=== PATIENT | male | born 1960 | race Caucasian/White ===

== ENCOUNTER → 2021-08-21 11:06 | Outpatient (BNVA) | payer OTHER, SELFPAY | PROVIDERS: PCP Physician Assistant; Visit Provider Internal Medicine Gastroenterology | DX: Z12.11 Encounter for screening for malignant neoplasm of colon (principal); K51.90 Ulcerative colitis, unspecified, without complications | CPT/HCPCS: 99202 ==

== ENCOUNTER 2021-12-20 10:48 | Inpatient (IN) | payer OTHER, SELFPAY ==
--- NOTE | ~2021-12-20 | XR_ITS ---
EXAMINATION: XR CHEST CLINICAL INFORMATION: Cough COMPARISON: Chest x-ray 02/18/2018 TECHNIQUE: Frontal view of the chest was obtained. FINDINGS: The lungs are clear. No airspace consolidation, pleural effusion, or pneumothorax. The cardiomediastinal silhouette is within normal limits. No acute osseous injury. XR/XR chest 1V IMPRESSION: Unremarkable examination.
--- NOTE | ~2021-12-20 | CT_ITS ---
EXAMINATION: CT HEAD WITHOUT CONTRAST CT CERVICAL SPINE WITHOUT CONTRAST CLINICAL INFORMATION: Fall. COMPARISON: February 01, 2020. TECHNIQUE: CT of the head and cervical spine were performed without intravenous contrast. Multiplanar reformats were rendered and reviewed. This CT examination was performed using dose optimization techniques as appropriate, variously including the following: *Automated exposure control *Adjustment of mA and/or kV according to patient size (this includes techniques or standardized protocols for targeted exams where dose is matched to indication/reason for exam; i.e. extremities or head) *Use of iterative reconstruction technique DLP: 1031 mGy-cm. FINDINGS: CT head: No intracranial hemorrhage, large infarction, or mass lesion is seen. Question subtle hypodensity involving the cedrick bilaterally versus beam hardening artifact, grossly similar to worse compared with February 01, 2020. Mild bilateral chronic periventricular white matter ischemic changes. No extra-axial collection is appreciated. The ventricles are normal in size and configuration without evidence of hydrocephalus. The visualized paranasal sinuses and mastoid air cells are clear. CT cervical spine: The cervical alignment is normal. The craniocervical junction is normal. The vertebral body heights are maintained. No cervical spine fracture is seen. Multilevel exuberant anterior osteophyte formation, most notable at C4-T1. Moderate bilateral neuroforaminal narrowing appears present at C5-C7 The paraspinal soft tissues are within normal limits. The partially imaged lung apices are clear. CT/CT cervical spine wo con IMPRESSION: CT head: No acute intracranial finding. Question subtle hypodensity involving the cedrick bilaterally versus beam hardening artifact, grossly similar to worse compared with February 01, 2020. CT cervical spine: No cervical spine fracture or traumatic malalignment identified. Degenerative changes.
--- NOTE | ~2021-12-20 | CT_ITS ---
EXAMINATION: CT HEAD WITHOUT CONTRAST CT CERVICAL SPINE WITHOUT CONTRAST CLINICAL INFORMATION: Fall. COMPARISON: February 01, 2020. TECHNIQUE: CT of the head and cervical spine were performed without intravenous contrast. Multiplanar reformats were rendered and reviewed. This CT examination was performed using dose optimization techniques as appropriate, variously including the following: *Automated exposure control *Adjustment of mA and/or kV according to patient size (this includes techniques or standardized protocols for targeted exams where dose is matched to indication/reason for exam; i.e. extremities or head) *Use of iterative reconstruction technique DLP: 1031 mGy-cm. FINDINGS: CT head: No intracranial hemorrhage, large infarction, or mass lesion is seen. Question subtle hypodensity involving the cedrick bilaterally versus beam hardening artifact, grossly similar to worse compared with February 01, 2020. Mild bilateral chronic periventricular white matter ischemic changes. No extra-axial collection is appreciated. The ventricles are normal in size and configuration without evidence of hydrocephalus. The visualized paranasal sinuses and mastoid air cells are clear. CT cervical spine: The cervical alignment is normal. The craniocervical junction is normal. The vertebral body heights are maintained. No cervical spine fracture is seen. Multilevel exuberant anterior osteophyte formation, most notable at C4-T1. Moderate bilateral neuroforaminal narrowing appears present at C5-C7 The paraspinal soft tissues are within normal limits. The partially imaged lung apices are clear. CT/CT head/brain wo con IMPRESSION: CT head: No acute intracranial finding. Question subtle hypodensity involving the cedrick bilaterally versus beam hardening artifact, grossly similar to worse compared with February 01, 2020. CT cervical spine: No cervical spine fracture or traumatic malalignment identified. Degenerative changes.
[2021-12-20 10:52] VITALS: BP 150/81; BP 150/90; PULSE 80; PULSE 88; RESP 20; TEMP 36.8; O2SAT 98; BMI 17.9
--- NOTE | 2021-12-20 10:52 | ECG_ITS ---
Test Reason : AMS Blood Pressure : / mmHG Vent. Rate : 078 BPM Atrial Rate : 078 BPM P-R Int : 150 ms QRS Dur : 102 ms QT Int : 398 ms P-R-T Axes : 073 065 074 degrees QTc Int : 453 ms Normal sinus rhythm Normal ECG When compared with ECG of 18-FEB-2018 15:05, No significant change was found Referred By: Juli Andujar Electronically Signed By:MÓNICA DURHAM MD
[2021-12-20 11:02] LABS: Glucose, Whole Blood 103 mg/dL (60-115)
--- NOTE | 2021-12-20 11:07 | ED_ITS ---
HPI - Fall General Chief Complaint: Fall Stated Complaint: AMS,WEAK,-STROKE SCALE, FROM HOME PER EMS Time Seen by Provider: 12/20/21 10:51 Source: EMS Mode of arrival: EMS History of Present Illness HPI Narrative: 61-year-old male who is brought in by EMS who reports that the brother went to check on the patient and noted that the patient has been falling and drinks daily. Patient did fall twice in front of EMS follow-up patient denies any acute complaints other than some ?rib pain?, he denies any shortness of breath or abdominal pain. Patient is a poor historian. Related Data Home Medications Medication Instructions Recorded Confirmed bupropion HCl 150 mg 24 hr tablet, 150 mg PO QAM 08/21/21 extended release melatonin 3 mg capsule 3 mg PO BEDTIME PRN 08/21/21 olanzapine 10 mg tablet 10 mg PO BEDTIME 08/21/21 thiamine HCl (vitamin B1) 100 mg 50 mg PO DAILY 08/21/21 tablet Previous Rx's Medication Instructions Recorded peg-electrolyte solution 420 gram 240 ml PO Q10M #4,000 mL 08/21/21 oral solution (Nulytely Lemon-Hoh) Allergies Allergy/AdvReac Type Severity Reaction Status Date / Time shellfish derived Allergy Unknown HIVES Unverified 08/21/21 11:11 [SHELLFISH DERIVED] shrimp Allergy Unknown HIVES Unverified 08/21/21 11:11 shellfish Allergy Unknown anaphylaxis, Uncoded 08/21/21 11:11 hives Review of Systems Review of Systems: Pertinent positives and negatives as stated in HPI 10 point review of systems otherwise negative. [facility] Past Medical History Source: nursing notes reviewed Social History Social History Alcohol intake: current Alcohol intake frequency: 3 or more drinks per day Alcohol type: beer Smoked in Last 30 Days: No Use of substances other than those prescribed or required for medical reasons: No Advance Directives: No Advance Directives Information Provided: Yes Physical Exam Vital Signs: Vital Signs: Last Vital Signs Temp 98.3 F 12/20/21 10:52 Pulse 88 12/20/21 10:52 Resp 20 12/20/21 10:52 BP 150/81 H 12/20/21 10:52 Pulse Ox 98 12/20/21 10:52 O2 Del Method 12/20/21 10:52 BMI result Body Mass Index 17.9 VITAL SIGNS: Reviewed. GENERAL: Cachectic, chronically ill, smells of alcohol HEAD: Normocephalic/atraumatic EYES: PERRLA, EOMI EARS: Ext canals without abnormality OROPHARYNX: no oral lesions noted, posterior pharynx clear, dry mucosa NECK: Supple, no adenopathy LUNGS: Normal breath sounds. No adventitious sounds or accessory muscle use. SpO2<98>; CHEST WALL: There are no deformities, ecchymosis or crepitus noted CARDIOVASCULAR: Regular rate and rhythm without noted murmurs, no JVD or lower extremity edema. ABDOMEN: Soft, non-tender, non-distended with bowel sounds. MUSCULOSKELETAL: No tenderness, deformities, or effusions noted on gross inspection. EXTREMITIES: No cyanosis, clubbing or edema, scattered bruising on lower extrem ities. SKIN: Inspection of the skin reveals no rashes, ulcerations, jaundice, pallor, or petechiae. NEUROLOGIC: Sleepy but easily aroused and oriented x 3. Strength and sensation to light touch were grossly intact x 4, but patient clearly has ataxic gait. Course Course Course Narrative: 61-year-old male with history and clinical presentation consistent with alcohol intoxication, multiple falls with ataxic gait but CT scan does show Question subtle hypodensity involving the cedrick bilaterally versus beam hardening artifact, grossly similar to worse compared with February 01, 2020. Review of all investigations consistent with alcohol ketoacidosis and associated pancreatitis with dehydration and alcohol intoxication. I discussed the case with the inpatient hospitalist who will evaluate the patient and likely admit. Patient was started on the phenobarb protocol and thiamine as well as folate were ordered. Reevaluation(s) Reevaluation #1: I discussed CT findings with Dr. 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 Time: 14:06 MDM - Fall Lab Data Result diagrams: 12/20/21 11:08 12/20/21 11:08 Labs: Lab Results 12/20/21 12/20/21 12/20/21 Range/Units 10:58 11:08 11:08 WBC 3.1 L (4.8-10.8) X10*3/uL RBC 4.13 L (4.60-5.80) X10*6/uL Hgb 12.8 L (14.0-18.0) g/dl Hct 35.8 L (42.0-52.0) % MCV 86.7 (80.0-98.0) fL MCH 31.0 (27.0-33.0) pg MCHC 35.8 (31.0-36.0) g/dl RDW 13.1 (11.0-16.0) % Plt Count 109 L (160-400) X10*3/uL MPV 10.3 (9.4-12.4) fL Immature Gran % (Auto) 1.0 H (0.0-0.4) % Neut % (Auto) 57.7 (45-73) % Lymph % (Auto) 13.1 L (20-40) % [place] % (Auto) 27.9 H (2-11) % Eos % (Auto) 0.0 (0-4) % Baso % (Auto) 0.3 (0-2) % Lymph # (Auto) 0.4 L (1.2-4.9) X10*3/uL [place] # (Auto) 0.9 (0.1-1.2) X10*3/uL Eos # (Auto) 0.0 (0.0-0.4) X10*3/uL Baso # (Auto) 0.0 (0.0-0.2) X10*3/uL Abs Immat Gran (auto) 0.03 (0.00-0.03) X10*3/uL Absolute Neuts (auto) 1.8 L (2.0-8.3) x10*3/uL Absolute Nucleated RBC 0.000 (0.0-0.012) X10*3/uL Nucleated RBC % (auto) 0.0 (0.0-0.2) /100WBC Smear Tech's Comments VERIFIED PT 12.7 (10.0-13.1) SEC INR 1.1 (0.9-1.1) Sodium (135-145) mmol/L Potassium (3.3-5.1) mmol/L Chloride (96-108) mmol/L Carbon Dioxide (22-29) mmol/L Anion Gap (12-20) BUN (9-16) mg/dL Creatinine (0.5-1.4) mg/dL Estim Creat Clear Calc Estimated GFR POC Glucose 103 (60-115) mg/dL Random Glucose (60-115) mg/dL Lactic Acid (0.5-2.0) mmol/L Calcium (8.4-10.2) mg/dL Magnesium (1.6-2.6) mg/dL Total Bilirubin (0.0-1.0) mg/dL AST (5-37) U/L ALT (0-40) U/L Alkaline Phosphatase (39-117) U/L Troponin I High Sens (<3.5-35.0) ng/L Total Protein (6.5-8.0) g/dL Albumin (3.5-5.0) g/dL Lipase (8-78) U/L Ethyl Alcohol mg/dL COVID-19 ([facility]) (Negative) COVID-19 Clin Com 12/20/21 12/20/21 12/20/21 Range/Units 11:08 11:08 11:08 WBC (4.8-10.8) X10*3/uL RBC (4.60-5.80) X10*6/uL Hgb (14.0-18.0) g/dl Hct (42.0-52.0) % MCV (80.0-98.0) fL MCH (27.0-33.0) pg MCHC (31.0-36.0) g/dl RDW (11.0-16.0) % Plt Count (160-400) X10*3/uL MPV (9.4-12.4) fL Immature Gran % (Auto) (0.0-0.4) % Neut % (Auto) (45-73) % Lymph % (Auto) (20-40) % [place] % (Auto) (2-11) % Eos % (Auto) (0-4) % Baso % (Auto) (0-2) % Lymph # (Auto) (1.2-4.9) X10*3/uL [place] # (Auto) (0.1-1.2) X10*3/uL Eos # (Auto) (0.0-0.4) X10*3/uL Baso # (Auto) (0.0-0.2) X10*3/uL Abs Immat Gran (auto) (0.00-0.03) X10*3/uL Absolute Neuts (auto) (2.0-8.3) x10*3/uL Absolute Nucleated RBC (0.0-0.012) X10*3/uL Nucleated RBC % (auto) (0.0-0.2) /100WBC Smear Tech's Comments PT (10.0-13.1) SEC INR (0.9-1.1) Sodium 128 L (135-145) mmol/L Potassium 3.2 L (3.3-5.1) mmol/L Chloride 85 L (96-108) mmol/L Carbon Dioxide 19 L (22-29) mmol/L Anion Gap 27 H (12-20) BUN 7 L (9-16) mg/dL Creatinine 0.82 (0.5-1.4) mg/dL Estim Creat Clear Calc 71.5 Estimated GFR > 60 POC Glucose (60-115) mg/dL Random Glucose 90 (60-115) mg/dL Lactic Acid 1.7 (0.5-2.0) mmol/L Calcium 8.5 (8.4-10.2) mg/dL Magnesium 2.0 (1.6-2.6) mg/dL Total Bilirubin 1.1 H (0.0-1.0) mg/dL AST 192 H (5-37) U/L ALT 103 H (0-40) U/L Alkaline Phosphatase 82 (39-117) U/L Troponin I High Sens < 3.5 (<3.5-35.0) ng/L Total Protein 7.9 (6.5-8.0) g/dL Albumin 4.4 (3.5-5.0) g/dL Lipase 360 H (8-78) U/L Ethyl Alcohol 288 mg/dL COVID-19 ([facility]) (Negative) COVID-19 Clin Com 12/20/21 Range/Units 11:08 WBC (4.8-10.8) X10*3/uL RBC (4.60-5.80) X10*6/uL Hgb (14.0-18.0) g/dl Hct (42.0-52.0) % MCV (80.0-98.0) fL MCH (27.0-33.0) pg MCHC (31.0-36.0) g/dl RDW (11.0-16.0) % Plt Count (160-400) X10*3/uL MPV (9.4-12.4) fL Immature Gran % (Auto) (0.0-0.4) % Neut % (Auto) (45-73) % Lymph % (Auto) (20-40) % [place] % (Auto) (2-11) % Eos % (Auto) (0-4) % Baso % (Auto) (0-2) % Lymph # (Auto) (1.2-4.9) X10*3/uL [place] # (Auto) (0.1-1.2) X10*3/uL Eos # (Auto) (0.0-0.4) X10*3/uL Baso # (Auto) (0.0-0.2) X10*3/uL Abs Immat Gran (auto) (0.00-0.03) X10*3/uL Absolute Neuts (auto) (2.0-8.3) x10*3/uL Absolute Nucleated RBC (0.0-0.012) X10*3/uL Nucleated RBC % (auto) (0.0-0.2) /100WBC Smear Tech's Comments PT (10.0-13.1) SEC INR (0.9-1.1) Sodium (135-145) mmol/L Potassium (3.3-5.1) mmol/L Chloride (96-108) mmol/L Carbon Dioxide (22-29) mmol/L Anion Gap (12-20) BUN (9-16) mg/dL Creatinine (0.5-1.4) mg/dL Estim Creat Clear Calc Estimated GFR POC Glucose (60-115) mg/dL Random Glucose (60-115) mg/dL Lactic Acid (0.5-2.0) mmol/L Calcium (8.4-10.2) mg/dL Magnesium (1.6-2.6) mg/dL Total Bilirubin (0.0-1.0) mg/dL AST (5-37) U/L ALT (0-40) U/L Alkaline Phosphatase (39-117) U/L Troponin I High Sens (<3.5-35.0) ng/L Total Protein (6.5-8.0) g/dL Albumin (3.5-5.0) g/dL Lipase (8-78) U/L Ethyl Alcohol mg/dL COVID-19 ([facility]) Negative (Negative) COVID-19 Clin Com See Note ECG Data Attestation: I personally reviewed and interpreted this ECG as follows: Prior ECG tracings: available for review Interpretation: NSR, HR-78, no STEMI, AL/QRS/QTC are within normal limits. Discharge Plan Discharge Clinical Impression: Alcoholic ketoacidosis, Alcohol dependence, Alcohol intoxication, Multiple falls Patient Disposition: Admitted As Inpatient
[2021-12-20 11:18] LABS: Basophils Percent Auto 0.3 % (0-2); Hematocrit 35.8 % (42.0-52.0); Hemoglobin 12.8 g/dl (14.0-18.0); Imm Gran Abs Auto 0.03 X10*3/uL (0.00-0.03); Lymphocytes Absolute Auto 0.4 X10*3/uL (1.2-4.9); Lymphocytes Percent Auto 13.1 % (20-40); MANUAL DIFF FLAG SCAN; Mean Corpuscular HGB Conc 35.8 g/dl (31.0-36.0); Mean Corpuscular Volume 86.7 fL (80.0-98.0); Mean Platelet Volume 10.3 fL (9.4-12.4); Monocytes Absolute Auto 0.9 X10*3/uL (0.1-1.2); Monocytes Percent Auto 27.9 % (2-11); Neutrophils Absolute Auto 1.8 x10*3/uL (2.0-8.3); Neutrophils Percent Auto 57.7 % (45-73); Platelet Count 109 X10*3/uL (160-400); Red Blood Count 4.13 X10*6/uL (4.60-5.80); Red Cell Distribution Width 13.1 % (11.0-16.0); SCAN SMEAR FLAG 1; White Blood Count 3.1 X10*3/uL (4.8-10.8)
[2021-12-20 11:24] LABS: INTERNATIONAL NORM RATIO 1.1 (0.9-1.1); Prothrombin Time 12.7 SEC (10.0-13.1)
[2021-12-20 11:32] LABS: Lactic Acid 1.7 mmol/L (0.5-2.0)
[2021-12-20 11:37] LABS: SLIDE REVIEW VERIFIED
[2021-12-20 11:38] LABS: Alanine Aminotransferase 103 U/L (0-40); Albumin Level 4.4 g/dL (3.5-5.0); Alkaline Phosphatase 82 U/L (39-117); Anion Gap 27 (12-20); Aspartate Amino Transferase 192 U/L (5-37); Bilirubin Total 1.1 mg/dL (0.0-1.0); Blood Urea Nitrogen 7 mg/dL (9-16); Calcium 8.5 mg/dL (8.4-10.2); Carbon Dioxide 19 mmol/L (22-29); Chloride 85 mmol/L (96-108); Creatinine Clr Calc Pharmacy 71.5; Estimated Glomerular Filt Rate > 60; Ethanol 288 mg/dL; Glucose Random 90 mg/dL (60-115); Potassium 3.2 mmol/L (3.3-5.1); Sodium 128 mmol/L (135-145); Total Protein 7.9 g/dL (6.5-8.0)
[2021-12-20 11:41] LABS: Troponin-I High Sensitivity < 3.5 ng/L (<3.5-35.0)
[2021-12-20 11:46] LABS: COVID-19 Test Negative (Negative)
[2021-12-20] MEDS: 0.9 % Sodium Chloride 2,000 ML 999 ML IV (12:03)
[2021-12-20 12:42] LABS: Lipase 360 U/L (8-78)
--- NOTE | 2021-12-20 13:12 | MHC.RECOVRN ---
This radio script writer met w/ pt, pt alert and oriented upon entering room. Pt states drinks about 3 beers daily and has been drinking for a long time. Pt states has not been in any levels of substance use treatment in the past. This radio script writer offered treatment, pt states not interested at this time. This radio script writer offered resources on decreasing use, recovery and MAT for ETOH use. Pt states not interested at this time. Harm reduction discussed.
--- NOTE | 2021-12-20 14:45 | PM.IMHP ---
History of Present Illness Date of Service: 12/20/21 Chief Complaint: Fall a 61 years old male with PMH of Alcoholism,ulcerative colitis who presents to the hospital sustaining a fall. It reports that he was going to the marked show up when he fell and the ambulance picked him up and brought him to the hospital. Reports drinking at least 3 beers a day. He had some earlier this morning. Denies any headache, loss of conscious, double vision, nausea, chest pain, vomiting, shortness of breath, change in bowel habit or urinary symptoms. Is a very poor historian who reports that he lives alone. In the emergency he was found to have elevated lipase level with hyponatremia and evidence of acidosis with high alcohol level. Admitted for further evaluation and treatment. Review of Systems Review of Systems: No fever, chills or weakness No chest pain, palpitation No shortness of breath or coughing No abdominal pain, nausea or vomiting No urinary symptoms No any rash or wounds complaining of ribs pain only PMFSH Medical History Alcohol dependence Multiple falls Ulcerative colitis Social History Alcohol intake: current Alcohol intake frequency: 3 or more drinks per day Alcohol type: beer Smoked in Last 30 Days: No Use of substances other than those prescribed or required for medical reasons: No Advance Directives: No Advance Directives Information Provided: Yes Meds Allergies Allergy/AdvReac Type Severity Reaction Status Date / Time shellfish derived Allergy Unknown HIVES Unverified 08/21/21 11:11 [SHELLFISH DERIVED] shrimp Allergy Unknown HIVES Unverified 08/21/21 11:11 shellfish Allergy Unknown anaphylaxis, Uncoded 08/21/21 11:11 hives Active Medications: Current Medications Acetaminophen (Acetaminophen 325 Mg Tablet) 650 mg PO Q6H PRN PRN Reason: Pain, Mild (Pain Scale 1-3) Enoxaparin Sodium (Enoxaparin Sodium 40 Mg/0.4 Ml Syringe) 40 mg SUBCUT Q24H ASHISH Folic Acid (Folic Acid 1 Mg Tablet) 1 mg PO DAILY ASHISH Sodium Chloride (Ns) 1,000 mls @ 150 mls/hr IVCONT .Q6H40M ASHISH Ondansetron HCl (Ondansetron Hcl 4 Mg/2 Ml Vial) 4 mg IVPUSH Q8H PRN PRN Reason: Nausea and Vomiting Pharmacy Consult (Consult Rx Perform Med Rec) 1 each MISCELLANE ONCE PRN PRN Reason: Consult order Pharmacy Consult (Consult Rx Etoh Phenob Im/Po) 1 each MISCELLANE ONCE PRN; Protocol PRN Reason: Consult order Sodium Chloride (0.9 % Sodium Chloride Flush 3 Ml Syringe) 3 ml IVFLUSH QSHIFT ASHISH Thiamine HCl (Thiamine Hcl 100 Mg Tablet) 100 mg PO DAILY [facility] Home Medications Medication Instructions Recorded Confirmed Last Taken Type bupropion HCl 150 mg 24 hr tablet, 150 mg PO QAM 08/21/21 Unknown History extended release melatonin 3 mg capsule 3 mg PO BEDTIME PRN 08/21/21 Unknown History olanzapine 10 mg tablet 10 mg PO BEDTIME 08/21/21 Unknown History thiamine HCl (vitamin B1) 100 mg 50 mg PO DAILY 08/21/21 Unknown History tablet Physical Exam Vital Signs and Narrative: Vital Signs: Last Vital Signs Temp 98.3 F 12/20/21 10:52 Pulse 88 12/20/21 10:52 Resp 20 12/20/21 10:52 BP 150/81 H 12/20/21 10:52 Pulse Ox 98 12/20/21 10:52 O2 Del Method 12/20/21 10:52 BMI result Body Mass Index 17.9 Const: Other: Constitutional : Alert, interact, not in distress Neck : Normal inspection, Supple Cardiovascular : RRR, no JVP, no lower extremity edema Respiratory : fair bilateral air entry, no crackles, wheezes or rhonchi Gastrointestinal: soft, lax, Normal bowel sounds, Non tender Skin : Warm, Dry Neurological : Alert & oriented to place and person but not time, No focal deficit , CN 2-12 within normal Results Labs CBC and Chem 7: 12/20/21 11:08 12/20/21 11:08 Labs: Laboratory Results - last 24 hr 12/20/21 12/20/21 12/20/21 10:58 11:08 11:08 MCV 86.7 MCH 31.0 MCHC 35.8 RDW 13.1 Plt Count 109 L MPV 10.3 Immature Gran % (Auto) 1.0 H Neut % (Auto) 57.7 Lymph % (Auto) 13.1 L [place] % (Auto) 27.9 H Eos % (Auto) 0.0 Baso % (Auto) 0.3 Lymph # (Auto) 0.4 L [place] # (Auto) 0.9 Eos # (Auto) 0.0 Baso # (Auto) 0.0 Abs Immat Gran (auto) 0.03 Absolute Neuts (auto) 1.8 L Absolute Nucleated RBC 0.000 Nucleated RBC % (auto) 0.0 Smear Tech's Comments VERIFIED PT 12.7 INR 1.1 Anion Gap Estim Creat Clear Calc Estimated GFR POC Glucose 103 Random Glucose Lactic Acid Calcium Magnesium Total Bilirubin AST ALT Alkaline Phosphatase Total Protein Albumin Lipase Ethyl Alcohol COVID-19 ([facility]) COVID-19 Clin Com 12/20/21 12/20/21 12/20/21 11:08 11:08 11:08 MCV MCH MCHC RDW Plt Count MPV Immature Gran % (Auto) Neut % (Auto) Lymph % (Auto) [place] % (Auto) Eos % (Auto) Baso % (Auto) Lymph # (Auto) [place] # (Auto) Eos # (Auto) Baso # (Auto) Abs Immat Gran (auto) Absolute Neuts (auto) Absolute Nucleated RBC Nucleated RBC % (auto) Smear Tech's Comments PT INR Anion Gap 27 H Estim Creat Clear Calc 71.5 Estimated GFR > 60 POC Glucose Random Glucose 90 Lactic Acid 1.7 Calcium 8.5 Magnesium 2.0 Total Bilirubin 1.1 H AST 192 H ALT 103 H Alkaline Phosphatase 82 Total Protein 7.9 Albumin 4.4 Lipase 360 H Ethyl Alcohol 288 COVID-19 ([facility]) Negative COVID-19 Clin Com See Note Imaging Radiologist's Impressions: Impressions Cervical Spine CT 12/20/21 12:17 IMPRESSION: CT head: No acute intracranial finding. Question subtle hypodensity involving the cedrick bilaterally versus beam hardening artifact, grossly similar to worse compared with February 01, 2020. CT cervical spine: No cervical spine fracture or traumatic malalignment identified. Degenerative changes. Head CT 12/20/21 12:17 IMPRESSION: CT head: No acute intracranial finding. Question subtle hypodensity involving the cedrick bilaterally versus beam hardening artifact, grossly similar to worse compared with February 01, 2020. CT cervical spine: No cervical spine fracture or traumatic malalignment identified. Degenerative changes. Assessment and Plan (1) Hyponatremia: Status: Acute (2) Hypokalemia: Status: Acute (3) Alcohol dependence: Status: Acute (4) Multiple falls: Status: Acute (5) Alcoholic ketoacidosis: Status: Acute Plan a 61 years old male with PMH of Alcoholism,ulcerative colitis who presents to the hospital sustaining a fall. falls Secondary to alcohol abuse, physical deconditioning Do physical therapy Alcoholic Ketoacidosis Wide anion gap Treat with IV fluids Of D5 NSfor now thiamine IV Follow BMP Hyponatremia, hypokalemia Give potassium replacement IV fluids for now, might need with the restriction Transaminitis Secondary to alcoholism To trend Elevated lipase No evidence of clinical pancreatitis Would be treated with IV fluid, monitor for any pain Advanced diet as tolerated Alcoholism, high risk for alcohol withdrawal Advised complete abstinence from alcohol Phenobarbital protocol Thiamine and folic acid replacement DVT PPX Lovenox The patient will need 2 overnight hospital stay for treatment of above complaints to prevent possible decompensation into hypoxic failure, electrolyte imbalance Pending safe discharge plan Quality Stroke Does the patient have a stroke diagnosis?: No VTE Prior VTE?: No VTE Risk Level:: Medical - moderate - high VTE Device Contraindication: Treatment Not Indicated VTE Drug Contraindication: N/A - Med Ordered
[2021-12-20 14:52] LABS: Anion Gap 24 (12-20); Blood Urea Nitrogen 6 mg/dL (9-16); Calcium 7.6 mg/dL (8.4-10.2); Carbon Dioxide 19 mmol/L (22-29); Chloride 93 mmol/L (96-108); Estimated Glomerular Filt Rate > 60; Glucose Random 81 mg/dL (60-115); Lipase 366 U/L (8-78); Potassium 2.9 mmol/L (3.3-5.1); Sodium 133 mmol/L (135-145)
[2021-12-20] MEDS: Thiamine HCL 100 MG in 0.9 % Sodium Chloride 100 ML 202 MG IV (14:55)
[2021-12-20 14:56] VITALS: BP 121/51; PULSE 74; RESP 14; O2SAT 98
[2021-12-20] MEDS: PHENobarbitaL sodium 130 MG/ML IM ONCE 171 MG IM (15:02)
--- NOTE | 2021-12-20 15:32 | PHA.MEDREC ---
Pharmacy Consult ? Medication Reconciliation Pharmacy has completed the medication reconciliation. Pt poor historian, but stated he gets his medications at the [facility] in [place], but noted it's been weeks since he last took them. Stated there were about 4; had medications from last visit in home medication history. Listed medication from last time and pt agreeable to all that I named.
[2021-12-20] MEDS: Potassium Chloride Packet 20 MEQ PACKET 40 MEQ PO ×2 (15:54→17:33)
[2021-12-20 16:00] VITALS: BP 108/56; PULSE 84; RESP 16; TEMP 36.9; O2SAT 98
[2021-12-20] MEDS: Potassium Chloride/H20 10 MEQ/100 ML PIGGYBACK 100 MEQ IV ×2 (16:12→17:32)
[2021-12-20] MEDS: Dextrose 5 % and 0.9 % NaCl 1,000 ML 100 ML IVCONT ×2 (16:44→23:55)
[2021-12-20] MEDS: Enoxaparin Sodium 40 MG/0.4 ML SYRINGE SUBCUT (17:32)
[2021-12-20 17:43] LABS: Appearance Urine CLEAR; Color Urine YELLOW; Glucose Urine UA NEG (NEG); Leukocyte Esterase Urine NEG (NEG); Nitrite Urine NEG (NEG); PH 5.5 (5.0-8.0); UACC Culture Trigger NO; Urine Blood 3+ (NEG); Urine Ketones 40 MG/DL (NEG); Urine Protein TRACE MG/DL (NEG-TRACE)
[2021-12-20 17:54] LABS: Bacteria Urine TRACE /LPF; RBC Urine 0 /HPF (0); Squamous Epithelial Cell Urine TRACE /LPF; WBC Urine 0 /HPF (0-4)
[2021-12-20 18:10] VITALS: BP 119/67; PULSE 78; RESP 20; O2SAT 96
[2021-12-20] MEDS: PHENobarbitaL sodium 130 MG/ML VIAL IM Q3Hx2 128 MG IM ×2 (18:11→20:14)
[2021-12-20 20:00] VITALS: BP 106/61; PULSE 79; RESP 16; TEMP 36.2; O2SAT 98
[2021-12-20] MEDS: OLANZapine 10 MG TABLET PO (20:13)
[2021-12-21] VITALS: BP 108/54; PULSE 85; RESP 18; TEMP 36.6; O2SAT 98
[2021-12-21 04:00] VITALS: BP 149/67; PULSE 86; RESP 18; TEMP 37.2; O2SAT 98
[2021-12-21 05:43] LABS: Hematocrit 31.5 % (42.0-52.0); Hemoglobin 11.2 g/dl (14.0-18.0); Mean Corpuscular HGB Conc 35.6 g/dl (31.0-36.0); Mean Corpuscular Hemoglobin 31.3 pg (27.0-33.0); Mean Platelet Volume 9.9 fL (9.4-12.4); Red Blood Count 3.58 X10*6/uL (4.60-5.80); Red Cell Distribution Width 13.2 % (11.0-16.0)
[2021-12-21 05:45] LABS: Platelet Count 80 X10*3/uL (160-400); White Blood Count 1.6 X10*3/uL (4.8-10.8)
[2021-12-21 05:55] LABS: Alanine Aminotransferase 78 U/L (0-40); Albumin Level 3.5 g/dL (3.5-5.0); Alkaline Phosphatase 68 U/L (39-117); Anion Gap 21 (12-20); Aspartate Amino Transferase 141 U/L (5-37); Bilirubin Direct 0.5 mg/dL (0.0-0.5); Blood Urea Nitrogen 3 mg/dL (9-16); Calcium 7.2 mg/dL (8.4-10.2); Carbon Dioxide 20 mmol/L (22-29); Chloride 95 mmol/L (96-108); Creatinine Clr Calc Pharmacy 83.8; Estimated Glomerular Filt Rate > 60; Glucose Random 77 mg/dL (60-115); Potassium 3.1 mmol/L (3.3-5.1); Sodium 133 mmol/L (135-145); Total Protein 6.5 g/dL (6.5-8.0)
[2021-12-21 07:06] VITALS: BP 157/83; PULSE 96; RESP 14; TEMP 36.9; O2SAT 98
[2021-12-21 07:12] LABS: Folate 11.4 ng/mL (> or = 4.0)
[2021-12-21] MEDS: buPROPion HCl XL 150 MG TAB.ER.24H PO (07:42)
[2021-12-21] MEDS: Thiamine HCL 100 MG TABLET PO (07:43)
[2021-12-21] MEDS: Thiamine HCL 100 MG TABLET 50 MG PO (07:43)
[2021-12-21] MEDS: Folic Acid 1 MG TABLET PO (07:43)
[2021-12-21] MEDS: PHENobarbitaL 15 MG TABLET 45 MG PO ×2 (07:43→21:33)
[2021-12-21] MEDS: PHENobarbitaL sodium 130 MG/ML VIAL 120 MG IM (08:33)
[2021-12-21] MEDS: Potassium Chloride Packet 20 MEQ PACKET 40 MEQ PO (08:33)
--- NOTE | 2021-12-21 09:04 | MHC.CM.PN ---
No IMM required Patient reports he lives alone, has a brother but not much contact. Patient reports has quite a few stairs to get to 2nd floor apartment. He reports he is independent at home/community, denies use of DME, denies services at home. Patient educated about HCP, he declined to complete one at this time. He reports he is Covid vax'd x3 ([employer]), PCP: Swetha Dye, and may need transportation assistance. D/C Plan: Home (self-care) vs STR
[2021-12-21 11:13] VITALS: BP 124/58; PULSE 98; RESP 14; TEMP 36.9; O2SAT 96
[2021-12-21] MEDS: Dextrose 5 % and 0.9 % NaCl 1,000 ML 100 ML IVCONT (11:20)
--- NOTE | 2021-12-21 11:40 | P.PNIM_ITS ---
Subjective Subjective Date of Service: 12/21/21 Interval History: feels more comfortable this morning Still feeling weak and tired Reported tremors and high CIWA score No reported overnight events Review of Systems No fever, chills or weakness No chest pain, palpitation No shortness of breath or coughing No abdominal pain, nausea or vomiting No urinary symptoms No any rash or wounds complaining of ribs pain only Physical Exam Vital Signs: Vital Signs: Last Vital Signs Temp 98.4 F 12/21/21 11:13 Pulse 98 12/21/21 11:13 Resp 14 12/21/21 11:13 BP 124/58 L 12/21/21 11:13 Pulse Ox 96 12/21/21 11:13 O2 Del Method 12/21/21 11:13 BMI result Body Mass Index 17.9 Const: Other: Constitutional : Alert, interact, not in distress Neck : Normal inspection, Supple Cardiovascular : RRR, no JVP, no lower extremity edema Respiratory : fair bilateral air entry, no crackles, wheezes or rhonchi Gastrointestinal: soft, lax, Normal bowel sounds, Non tender Skin : Warm, Dry Neurological : Alert & oriented to place and person, No focal deficit , CN 2-12 within normal Objective Data Active Medications Acetaminophen (Acetaminophen 325 Mg Tablet) 650 mg PO Q6H PRN PRN Reason: Pain, Mild (Pain Scale 1-3) Bupropion HCl (Bupropion Hcl Xl 150 Mg Tab.Er.24h) 150 mg PO DAILY [facility] Last Admin: 12/21/21 07:42 Dose: 150 mg Documented By: FROYLAN Enoxaparin Sodium (Enoxaparin Sodium 40 Mg/0.4 Ml Syringe) 40 mg SUBCUT Q24H [facility] Last Admin: 12/20/21 17:32 Dose: 40 mg Documented By: JOSÉOPEB Folic Acid (Folic Acid 1 Mg Tablet) 1 mg PO DAILY [facility] Last Admin: 12/21/21 07:43 Dose: 1 mg Documented By: FROYLAN Dextrose/Sodium Chloride (D5ns) 1,000 mls @ 100 mls/hr IVCONT .Q10H [facility] Last Admin: 12/21/21 11:20 Dose: 100 mls/hr Documented By: FROYLAN Melatonin (Melatonin 3 Mg Tablet) 3 mg PO BEDTIME PRN PRN Reason: Sleep Olanzapine (Olanzapine 10 Mg Tablet) 10 mg PO BEDTIME [facility] Last Admin: 12/20/21 20:13 Dose: 10 mg Documented By: TOMMY Ondansetron HCl (Ondansetron Hcl 4 Mg/2 Ml Vial) 4 mg IVPUSH Q8H PRN PRN Reason: Nausea and Vomiting Pharmacy Consult (Consult Rx Perform Med Rec) 1 each MISCELLANE ONCE PRN PRN Reason: Consult order Pharmacy Consult (Consult Rx Etoh Phenob Im/Po) 1 each MISCELLANE ONCE PRN; Protocol PRN Reason: Consult order Phenobarbital (Phenobarbital 15 Mg Tablet) 45 mg PO BID [facility] Stop: 12/22/21 21:01 Last Admin: 12/21/21 07:43 Dose: 45 mg Documented By: FROYLAN Phenobarbital (Phenobarbital 30 Mg Tablet) 30 mg PO BID [facility] Stop: 12/24/21 21:01 Phenobarbital (Phenobarbital 15 Mg Tablet) 15 mg PO DAILY [facility] Stop: 12/26/21 09:01 Sodium Chloride (0.9 % Sodium Chloride Flush 3 Ml Syringe) 3 ml IVFLUSH QSHIFT [facility] Last Admin: 12/21/21 07:43 Dose: Not Given Documented By: FROYLAN Non-Admin Reason: IV Running Thiamine HCl (Thiamine Hcl 100 Mg Tablet) 100 mg PO DAILY [facility] Last Admin: 12/21/21 07:43 Dose: 100 mg Documented By: FROYLAN Labs CBC & Chem 7: 12/21/21 05:05 12/21/21 05:05 Labs: Laboratory Results - last 24 hr 12/20/21 12/20/21 12/20/21 11:08 11:08 14:28 MCV MCH MCHC RDW Plt Count MPV Absolute Nucleated RBC Nucleated RBC % (auto) Smear Path Review Anion Gap 24 H Estim Creat Clear Calc 85.0 Estimated GFR > 60 Random Glucose 81 Calcium 7.6 L D Magnesium 2.0 Total Bilirubin Direct Bilirubin AST ALT Alkaline Phosphatase Total Protein Albumin Lipase 360 H 366 H Folate Urine Color Urine Appearance Urine pH Ur Specific [place] Urine Protein Urine Glucose (UA) Urine Ketones Urine Blood Urine Nitrite Ur Leukocyte Esterase Urine RBC Urine WBC Ur Squamous Epith Cells Urine Bacteria COVID-19 ([facility]) Negative COVID-19 Clin Com See Note 12/20/21 12/20/21 12/21/21 14:28 17:37 05:05 MCV 88.0 MCH 31.3 MCHC 35.6 RDW 13.2 Plt Count 80 L D MPV 9.9 Absolute Nucleated RBC 0.000 Nucleated RBC % (auto) 0.0 Smear Path Review SEE NOTE Anion Gap Estim Creat Clear Calc Estimated GFR Random Glucose Calcium Magnesium Total Bilirubin Direct Bilirubin AST ALT Alkaline Phosphatase Total Protein Albumin Lipase Folate 11.4 Urine Color YELLOW Urine Appearance CLEAR Urine pH 5.5 Ur Specific [place] 1.020 Urine Protein TRACE Urine Glucose (UA) NEG Urine Ketones 40 Urine Blood 3+ H Urine Nitrite NEG Ur Leukocyte Esterase NEG Urine RBC 0 Urine WBC 0 Ur Squamous Epith Cells TRACE Urine Bacteria TRACE COVID-19 ([facility]) COVID-19 Clin Com 12/21/21 05:05 MCV MCH MCHC RDW Plt Count MPV Absolute Nucleated RBC Nucleated RBC % (auto) Smear Path Review Anion Gap 21 H Estim Creat Clear Calc 83.8 Estimated GFR > 60 Random Glucose 77 Calcium 7.2 L Magnesium Total Bilirubin 1.0 Direct Bilirubin 0.5 AST 141 H ALT 78 H Alkaline Phosphatase 68 Total Protein 6.5 Albumin 3.5 D Lipase Folate Urine Color Urine Appearance Urine pH Ur Specific [place] Urine Protein Urine Glucose (UA) Urine Ketones Urine Blood Urine Nitrite Ur Leukocyte Esterase Urine RBC Urine WBC Ur Squamous Epith Cells Urine Bacteria COVID-19 ([facility]) COVID-19 Clin Com Assessment and Plan (1) Hypokalemia: Status: Acute (2) Hyponatremia: Status: Acute (3) Alcohol dependence: Status: Acute (4) Multiple falls: Status: Acute Plan a 61 years old male with PMH of Alcoholism,ulcerative colitis who presents to the hospital sustaining a fall. falls Secondary to alcohol abuse, physical deconditioning physical therapy Alcoholic Ketoacidosis repeated anion gap continue with IV fluids Of D5 NS for now Thiamine and folic acid replacement Follow BMP Hyponatremia, hypokalemia Give potassium replacement IV fluids for now, might need with the restriction Transaminitis Secondary to alcoholism trending down Elevated lipase No evidence of clinical pancreatitis Would be treated with IV fluid, monitor for any pain Advanced diet To regular with supplement Alcoholism, high risk for alcohol withdrawal Advised complete abstinence from alcohol Phenobarbital protocol addiction team to follow the patient DVT PPX Lovenox The patient will need 2 overnight hospital stay for treatment of above complaints to prevent possible decompensation into hypoxic failure, electrolyte imbalance Pending safe discharge plan Quality Stroke Does the patient have a stroke diagnosis?: No VTE Prior VTE?: No VTE Risk Level:: Medical - moderate - high VTE Device Contraindication: Treatment Not Indicated VTE Drug Contraindication: N/A - Med Ordered
[2021-12-21 14:28] VITALS: BMI 17.9
--- NOTE | 2021-12-21 14:31 | MHC.CLN ---
Addendum entered by Alisson Mcginnis 12/21/21 16:25: Patient's brother, Jeremy Barrios and [id number], Nini Hancock were requesting to have patient sent to a rehab as he is not able to care for himself at home. CM informed Jeremy rehab referrals have been initiated and patient has to be in agreement with going. Jeremy reports patient drinks everyday and passes out. When CM asked family if they wanted to speak with MD, Jeremy shared he had already spoken to the MD and the nurse. He would like to be kept abreast of discharge outcome as he would like to seek at home services for patient. Jeremy Barrios, brother [phone]; Nini Hancock [phone] Original Note: PT IS MODERATELY MALNOURISHED PT WITH MILDLY DEPLETED SUBCUTANEOUS FAT AND MUSCLE MASS, BMI 17.9 WITH CHRONIC POOR PO ITNAKE DIET RX: REGULAR-APPROPRIATE MD ADDED ENSURE TID TO PROVIDE 1050KCALS, 60G PROTEIN MONITOR PO INTAKE CLOSELY SEE ALSO FULL CLINICAL NUTRITION ASSESSMENT
[2021-12-21 15:19] VITALS: BP 109/58; PULSE 107; RESP 18; TEMP 37.2; O2SAT 96
--- NOTE | 2021-12-21 16:36 | MHC.CM.PN ---
Patient's brother, Jeremy Barrios and [id number], Nini Hancock were requesting to have patient sent to a rehab as he is not able to care for himself at home. CM informed Jeremy rehab referrals have been initiated and patient has to be in agreement with going. Jeremy reports patient drinks everyday and passes out. When CM asked family if they wanted to speak with MD, Jeremy shared he had already spoken to the MD and the nurse. He would like to be kept abreast of discharge outcome as he would like to seek at home services for patient. Jeremy Barrios, brother [phone]; Nini Hancock [phone]
[2021-12-21] MEDS: Enoxaparin Sodium 40 MG/0.4 ML SYRINGE SUBCUT (18:37)
[2021-12-21 19:53] VITALS: BP 140/58; RESP 18; TEMP 37.3; O2SAT 98
[2021-12-21] MEDS: OLANZapine 10 MG TABLET PO (21:34)
[2021-12-22] VITALS (7 sets, daily range): BP systolic 113–141; BP diastolic 56–75; PULSE 73–115; RESP 16–18; TEMP 36.2–37.3; O2SAT 94–98
[2021-12-22] MEDS: Dextrose 5 % and 0.9 % NaCl 1,000 ML 100 ML IVCONT (00:25)
[2021-12-22 06:37] LABS: Red Blood Count 3.54 X10*6/uL (4.60-5.80)
[2021-12-22 06:40] LABS: Basophils Percent Auto 0.6 % (0-2); Hematocrit 30.7 % (42.0-52.0); Imm Gran Abs Auto 0.02 X10*3/uL (0.00-0.03); Imm Gran Pct Auto 1.2 % (0.0-0.4); Lymphocytes Absolute Auto 0.4 X10*3/uL (1.2-4.9); Lymphocytes Percent Auto 21.4 % (20-40); Mean Corpuscular HGB Conc 35.8 g/dl (31.0-36.0); Mean Corpuscular Hemoglobin 31.1 pg (27.0-33.0); Mean Corpuscular Volume 86.7 fL (80.0-98.0); Mean Platelet Volume 10.2 fL (9.4-12.4); Monocytes Absolute Auto 0.3 X10*3/uL (0.1-1.2); Monocytes Percent Auto 16.7 % (2-11); Neutrophils Percent Auto 60.1 % (45-73)
[2021-12-22 06:42] LABS: Platelet Count 74 X10*3/uL (160-400); White Blood Count 1.7 X10*3/uL (4.8-10.8)
[2021-12-22 07:10] LABS: Anion Gap 14 (12-20); Blood Urea Nitrogen 4 mg/dL (9-16); Calcium 7.7 mg/dL (8.4-10.2); Carbon Dioxide 30 mmol/L (22-29); Chloride 93 mmol/L (96-108); Creatinine Clr Calc Pharmacy 94.6; Estimated Glomerular Filt Rate > 60; Glucose Random 100 mg/dL (60-115); Sodium 135 mmol/L (135-145)
[2021-12-22 07:24] LABS: Potassium 2.4 mmol/L (3.3-5.1)
[2021-12-22] MEDS: Potassium Chloride Packet 20 MEQ PACKET 40 MEQ PO ×2 (07:50→11:54)
[2021-12-22] MEDS: PHENobarbitaL 15 MG TABLET 45 MG PO ×2 (07:51→19:41)
[2021-12-22] MEDS: Folic Acid 1 MG TABLET PO (07:51)
[2021-12-22] MEDS: buPROPion HCl XL 150 MG TAB.ER.24H PO (07:52)
[2021-12-22] MEDS: 0.9 % Sodium Chloride Flush 3 ML SYRINGE IVFLUSH ×3 (07:52→19:45)
[2021-12-22] MEDS: Thiamine HCL 100 MG TABLET PO (07:52)
[2021-12-22] MEDS: Potassium Chloride/H20 10 MEQ/100 ML PIGGYBACK 100 MEQ IV ×2 (07:53→08:53)
--- NOTE | 2021-12-22 11:27 | HO.PM.IMPN ---
Subjective Subjective Date of Service: 12/22/21 Interval History: feels more comfortable this morning feeling better today Potassium low at 2.4 Improved CIWA score No reported overnight events Review of Systems No fever, chills or weakness No chest pain, palpitation No shortness of breath or coughing No abdominal pain, nausea or vomiting No urinary symptoms No any rash or wounds complaining of ribs pain only Physical Exam Vital Signs: Vital Signs: Last Vital Signs Temp 98.2 F 12/22/21 10:48 Pulse 99 12/22/21 10:48 Resp 18 12/22/21 10:48 BP 122/60 12/22/21 10:48 Pulse Ox 98 12/22/21 10:48 O2 Del Method 12/22/21 10:48 BMI result Body Mass Index 17.9 Const: Other: Constitutional : Alert, interact, not in distress Neck : Normal inspection, Supple Cardiovascular : RRR, no JVP, no lower extremity edema Respiratory : fair bilateral air entry, no crackles, wheezes or rhonchi Gastrointestinal: soft, lax, Normal bowel sounds, Non tender Skin : Warm, Dry Neurological : Alert & oriented to place and person, No focal deficit , CN 2-12 within normal Objective Data Active Medications Acetaminophen (Acetaminophen 325 Mg Tablet) 650 mg PO Q6H PRN PRN Reason: Pain, Mild (Pain Scale 1-3) Bupropion HCl (Bupropion Hcl Xl 150 Mg Tab.Er.24h) 150 mg PO DAILY [facility] Last Admin: 12/22/21 07:52 Dose: 150 mg Documented By: ELIECER Enoxaparin Sodium (Enoxaparin Sodium 40 Mg/0.4 Ml Syringe) 40 mg SUBCUT Q24H [facility] Last Admin: 12/21/21 18:37 Dose: 40 mg Documented By: KAREN Folic Acid (Folic Acid 1 Mg Tablet) 1 mg PO DAILY [facility] Last Admin: 12/22/21 07:51 Dose: 1 mg Documented By: ELIECER Melatonin (Melatonin 3 Mg Tablet) 3 mg PO BEDTIME PRN PRN Reason: Sleep Olanzapine (Olanzapine 10 Mg Tablet) 10 mg PO BEDTIME [facility] Last Admin: 12/21/21 21:34 Dose: 10 mg Documented By: NANCY Ondansetron HCl (Ondansetron Hcl 4 Mg/2 Ml Vial) 4 mg IVPUSH Q8H PRN PRN Reason: Nausea and Vomiting Pharmacy Consult (Consult Rx Perform Med Rec) 1 each MISCELLANE ONCE PRN PRN Reason: Consult order Pharmacy Consult (Consult Rx Etoh Phenob Im/Po) 1 each MISCELLANE ONCE PRN; Protocol PRN Reason: Consult order Phenobarbital (Phenobarbital 15 Mg Tablet) 45 mg PO BID [facility] Stop: 12/22/21 21:01 Last Admin: 12/22/21 07:51 Dose: 45 mg Documented By: ELIECER Phenobarbital (Phenobarbital 30 Mg Tablet) 30 mg PO BID [facility] Stop: 12/24/21 21:01 Phenobarbital (Phenobarbital 15 Mg Tablet) 15 mg PO DAILY [facility] Stop: 12/26/21 09:01 Potassium Chloride (Potassium Chloride Packet 20 Meq Packet) 40 meq PO Q4H [facility] Stop: 12/22/21 11:31 Last Admin: 12/22/21 07:50 Dose: 40 meq Documented By: ELIECER Sodium Chloride (0.9 % Sodium Chloride Flush 3 Ml Syringe) 3 ml IVFLUSH QSHIFT [facility] Last Admin: 12/22/21 07:52 Dose: 3 ml Documented By: ELIECER Thiamine HCl (Thiamine Hcl 100 Mg Tablet) 100 mg PO DAILY [facility] Last Admin: 12/22/21 07:52 Dose: 100 mg Documented By: ELIECER Labs CBC & Chem 7: 12/22/21 06:21 12/22/21 06:21 Labs: Laboratory Results - last 24 hr 12/22/21 12/22/21 06:21 06:21 MCV 86.7 MCH 31.1 MCHC 35.8 RDW 13.0 Plt Count 74 L MPV 10.2 Immature Gran % (Auto) 1.2 H Neut % (Auto) 60.1 Lymph % (Auto) 21.4 [place] % (Auto) 16.7 H Eos % (Auto) 0.0 Baso % (Auto) 0.6 Lymph # (Auto) 0.4 L [place] # (Auto) 0.3 Eos # (Auto) 0.0 Baso # (Auto) 0.0 Abs Immat Gran (auto) 0.02 Absolute Neuts (auto) 1.0 L Absolute Nucleated RBC 0.000 Nucleated RBC % (auto) 0.0 Anion Gap 14 Estim Creat Clear Calc 94.6 Estimated GFR > 60 Random Glucose 100 Calcium 7.7 L D Microbiology Microbiology Results: Microbiology 12/20/21 11:21 Blood Culture - Preliminary Blood - Venous No growth after 24 hours. 12/20/21 11:08 Blood Culture - Preliminary Blood - Venous No growth after 24 hours. Assessment and Plan (1) Hypokalemia: Status: Acute (2) Alcohol dependence: Status: Acute (3) Alcoholic ketoacidosis: Status: Acute (4) Alcohol withdrawal: Status: Acute (5) Multiple falls: Status: Acute Plan a 61 years old male with PMH of Alcoholism,ulcerative colitis who presents to the hospital sustaining a fall. hypokalemia Potassium of 2.4 Give replacement and follow BMP falls Secondary to alcohol abuse, physical deconditioning Pending physical therapy Alcoholic Ketoacidosis repeated anion gap discontinue IV D5 Thiamine and folic acid replacement Follow BMP Hyponatremia sodium improved to normal Transaminitis Secondary to alcoholism trending down Elevated lipase No evidence of clinical pancreatitis Advanced diet To regular with supplement Alcoholism, high risk for alcohol withdrawal Advised complete abstinence from alcohol Phenobarbital protocol addiction team to follow the patient DVT PPX Lovenox The patient will need 2 overnight hospital stay for treatment of above complaints to prevent possible decompensation into hypoxic failure, electrolyte imbalance Pending safe discharge plan Quality Stroke Does the patient have a stroke diagnosis?: No VTE Prior VTE?: No VTE Risk Level:: Medical - moderate - high VTE Device Contraindication: Treatment Not Indicated VTE Drug Contraindication: N/A - Med Ordered
--- NOTE | 2021-12-22 13:35 | MHC.CM.PN ---
Per ROUNDS discussion, patient Not yet medically ready for discharge r/t for hypokalemia, alcoholic ketoacidosis, hyponatremia, transamunitis elevated lipase, alcoholism; To prevent possible decompensation into hypoxic failure, electrolyte imbalance.
[2021-12-22 14:44] LABS: Anion Gap 19 (12-20); Blood Urea Nitrogen 4 mg/dL (9-16); Calcium 8.1 mg/dL (8.4-10.2); Carbon Dioxide 24 mmol/L (22-29); Chloride 94 mmol/L (96-108); Estimated Glomerular Filt Rate > 60; Glucose Random 93 mg/dL (60-115); Potassium 4.1 mmol/L (3.3-5.1); Sodium 133 mmol/L (135-145)
--- NOTE | 2021-12-22 15:43 | MHC.CM.PN ---
Patient's family asking about rehab for patient. They were informed referrals have been initiated. Family reports [facility] and [facility] Walters at [facility]. Family encouraged to speak with hospitalist or nurse if they have medical questions.
[2021-12-22] MEDS: Enoxaparin Sodium 40 MG/0.4 ML SYRINGE SUBCUT (17:27)
[2021-12-22] MEDS: Melatonin 3 MG TABLET PO (19:41)
[2021-12-22] MEDS: OLANZapine 10 MG TABLET PO (19:41)
[2021-12-23] VITALS (7 sets, daily range): BP systolic 91–145; BP diastolic 55–71; PULSE 77–91; RESP 16–20; TEMP 36.7–37.6; O2SAT 93–98
[2021-12-23 06:27] LABS: Hematocrit 30.9 % (42.0-52.0); Mean Corpuscular HGB Conc 35.6 g/dl (31.0-36.0); Mean Corpuscular Hemoglobin 31.6 pg (27.0-33.0); Mean Corpuscular Volume 88.8 fL (80.0-98.0); Mean Platelet Volume 10.4 fL (9.4-12.4); Platelet Count 68 X10*3/uL (160-400); Red Blood Count 3.48 X10*6/uL (4.60-5.80); Red Cell Distribution Width 13.6 % (11.0-16.0); White Blood Count 1.8 X10*3/uL (4.8-10.8)
[2021-12-23 06:54] LABS: Anion Gap 15 (12-20); Blood Urea Nitrogen 7 mg/dL (9-16); Calcium 8.1 mg/dL (8.4-10.2); Carbon Dioxide 29 mmol/L (22-29); Chloride 94 mmol/L (96-108); Creatinine Clr Calc Pharmacy 88.9; Estimated Glomerular Filt Rate > 60; Glucose Random 92 mg/dL (60-115); Potassium 3.1 mmol/L (3.3-5.1); Sodium 135 mmol/L (135-145)
[2021-12-23] MEDS: Thiamine HCL 100 MG TABLET PO (07:11)
[2021-12-23] MEDS: Folic Acid 1 MG TABLET PO (07:11)
[2021-12-23] MEDS: PHENobarbitaL 30 MG TABLET PO ×2 (07:11→19:53)
[2021-12-23] MEDS: buPROPion HCl XL 150 MG TAB.ER.24H PO (07:11)
[2021-12-23] MEDS: 0.9 % Sodium Chloride Flush 3 ML SYRINGE IVFLUSH ×3 (07:11→19:53)
[2021-12-23] MEDS: Potassium Chloride Packet 20 MEQ PACKET 40 MEQ PO ×3 (08:45→17:01)
[2021-12-23 10:04] LABS: COVID-19 Test Negative (Negative)
[2021-12-23] MEDS: Propranolol HCL 10 MG TABLET PO ×2 (10:21→19:52)
--- NOTE | 2021-12-23 11:29 | PM.DS ---
DS: Providers Provider Date of Service: 12/23/21 Date of admission: 12/20/21 14:27 Primary care physician: Swetha Dye MD Consults: 12/21/21 10:27 Addiction Medicine Routine Consulting Provider: Maricarmen Zambrano Reason for consultation: Alcoholism, lives alone, interested in quitting but difficult for him DS: Diagnosis Discharge Diagnosis (1) Hypokalemia: Status: Acute (2) Alcohol dependence: Status: Acute (3) Alcoholic ketoacidosis: Status: Acute (4) Alcohol withdrawal: Status: Acute (5) Multiple falls: Status: Acute (6) Essential tremor: Status: Acute (7) Pancytopenia: Status: Acute (8) Hyponatremia: Status: Acute (9) Alcohol intoxication: Status: Acute DS: Summary Hospital Course Hospital Course: Admission note HPI ?a 61 years old male with PMH of Alcoholism,ulcerative colitis who presents to the hospital sustaining a fall.? It reports that he was going to the [facility] show up when he fell and the ambulance picked him up and brought him to the hospital.? Reports drinking at least 3 beers a day.? He had some earlier this morning.? Denies any headache, loss of conscious, double vision, nausea, chest pain, vomiting, shortness of breath, change in bowel habit or urinary symptoms.? Is a very poor historian who reports that he lives alone.? In the emergency he was found to have elevated lipase level with hyponatremia and evidence of acidosis with high alcohol level.? Admitted for further evaluation and treatment. Hospital course the patient was admitted for evaluation of falls. Believed to be secondary to physical deconditioning and alcohol abuse. Found to be in alcohol ketoacidosis with Wide anion gap. Started on thiamine, IV dextrose water and replacement of folic acid with increase calorie intake. The anion gap closed as the patient improved. Noted to have hyponatremia and hypokalemia at time of presentation which both improved with replacement increase diet intake. Noted to have transaminitis which believed to be secondary to alcohol intake as his alcohol level was elevated at time of presentation. Trended down during the hospital stay. He was started on phenobarbital protocol for history of alcoholism and risk of withdrawal. Addiction team evaluated the patient. Recommended complete abstinence from alcohol. Noted to have essential tremors. Started low-dose propranolol to help controlling the symptoms as he reported drinking to relieve the tremor. Noted to have pancytopenia which believe secondary to chronic alcohol abuse. No measure drop noticed during the hospital stay. Will be on thiamine and folic acid at discharge. To be followed by PCP as outpatient. Continue thiamine, start folic acid Started propranolol 10 mg twice daily for essential tremors We advise you complete abstinence from alcohol the patient will likely need less than 30 days of SNF stay for physical therapy. Time Spent with Patient Time attestation: Total time spent providing and/or coordinating discharge services: Discharge coordination time: Greater than 30 minutes Quality: Safe Use of Opioids Does Pt have an Active Cancer Diagnosis on the Problem List?: No Quality: Stroke Does the patient have a stroke diagnosis?: No Physical Exam Vital Signs: Vital Signs: Last Vital Signs Temp 98.1 F 12/23/21 11:19 Pulse 86 12/23/21 11:19 Resp 20 12/23/21 11:19 BP 99/55 L 12/23/21 11:19 Pulse Ox 97 12/23/21 11:19 O2 Del Method 12/23/21 11:19 BMI result Body Mass Index 17.9 Const: Other: Constitutional : Alert, interact, not in distress Neck : Normal inspection, Supple Cardiovascular : RRR, no JVP, no lower extremity edema Respiratory : fair bilateral air entry, no crackles, wheezes or rhonchi Gastrointestinal: soft, lax, Normal bowel sounds, Non tender Skin : Warm, Dry Neurological : Alert & oriented to place and person, No focal deficit , Has essential tremors DS: Data Data Completed and Pending Labs on day of discharge: Laboratory Results - last 24 hr 12/22/21 12/23/21 12/23/21 13:51 05:25 05:25 WBC 1.8 L RBC 3.48 L Hgb 11.0 L Hct 30.9 L MCV 88.8 MCH 31.6 MCHC 35.6 RDW 13.6 Plt Count 68 L MPV 10.4 Absolute Nucleated RBC 0.000 Nucleated RBC % (auto) 0.0 Sodium 133 L 135 Potassium 4.1 D 3.1 L D Chloride 94 L 94 L Carbon Dioxide 24 29 Anion Gap 19 15 BUN 4 L 7 L D Creatinine 0.69 0.66 Estim Creat Clear Calc 85.0 88.9 Estimated GFR > 60 > 60 Random Glucose 93 92 Calcium 8.1 L 8.1 L COVID-19 ([facility]) COVID-19 Clin Com 12/23/21 09:30 WBC RBC Hgb Hct MCV MCH MCHC RDW Plt Count MPV Absolute Nucleated RBC Nucleated RBC % (auto) Sodium Potassium Chloride Carbon Dioxide Anion Gap BUN Creatinine Estim Creat Clear Calc Estimated GFR Random Glucose Calcium COVID-19 ([facility]) Negative COVID-19 Clin Com See Note Preliminary micro results at discharge 12/20/21 11:21 Blood Culture - Preliminary Blood - Venous No growth after 48 hours. 12/20/21 11:08 Blood Culture - Preliminary Blood - Venous No growth after 48 hours. Discharge Plan Discharge Patient Disposition: [facility] Discharge Diagnosis: multiple falls Alcohol ketoacidosis, withdrawal Electrolyte imbalance essential tremors Pancytopenia Referrals: Physician,Unknown J [Physician] - 1 Week Discharge Medications: New propranolol 10 mg Tablet 10 mg PO BID 30 Days Qty: 60 0RF Protocol: Hold for SBP/HR < HOLD for SBP < : 90 HOLD for HR < : 60 folic acid 1 mg Tablet 1 mg PO DAILY 30 Days Qty: 30 0RF Continued bupropion HCl 150 mg tablet extended release 24 hr 150 mg PO DAILY melatonin 3 mg capsule 3 mg PO BEDTIME PRN (Reason: Sleep) olanzapine 10 mg tablet 10 mg PO BEDTIME thiamine HCl (vitamin B1) 100 mg tablet 50 mg PO DAILY Discharge Orders: Discharge Order (Routine); Ordered 12/23/21 Ordered By: Edil Livingston Diet: Advance to usual diet Activity on Discharge: As tolerated Stand Alone Forms: Patient Portal Discharge page Care Plan Goals: Read below Health Concerns: Read below Plan of Treatment: Read below Assessment: you were admitted to the hospital for multiple falls. Found to be on alcoholic ketoacidosis from decreased oral intake and excessive drinking. Treated with IV fluid, electrolyte supplement, increase calorie intake with good response over the course of hospital stay. Noted to have essential tremors. Started on propranolol with Hold to help controlling the symptoms. Continue thiamine, start folic acid Started propranolol 10 mg twice daily for essential tremors We advise you complete abstinence from alcohol
--- NOTE | 2021-12-23 11:58 | MHC.RECOVRN ---
Met with pt to follow up regarding substance use. Pt reports drinking 3 beers daily for years. Pt denies hx tx for AUD. Pt lives alone, has supportive brother and sister in law. Pt reports brother has been concerned for some time regarding pts alcohol use. Pt states Liquor stores open at 10 and so I go and start consuming then. Pt denies alcohol use interfering with ADLs. Pt is ambivalent regarding decreasing or abstaining from alcohol. Discussed options for tx including medications for alcohol use disorder. Pt is interested in initiating naltrexone. Pt unsure regarding scheduling a follow up at the [facility], declines making appointment at this time. Denies questions or concerns. Discussed with Maricarmen Zambrano APRN.
[2021-12-23] MEDS: Naltrexone HCl 50 MG TABLET 25 MG PO (12:02)
--- NOTE | 2021-12-23 12:32 | MHC.CM.PN ---
CM MEDICALLY CLEARED FOR D/C TO [facility], [facility] OFFERED [facility], [facility]
--- NOTE | 2021-12-23 15:43 | HO.PM.IMPN ---
Subjective Subjective Date of Service: 12/23/21 Interval History: feels more comfortable this morning feeling better today Potassium Improved Improved CIWA score No reported overnight events Review of Systems No fever, chills or weakness No chest pain, palpitation No shortness of breath or coughing No abdominal pain, nausea or vomiting No urinary symptoms No any rash or wounds complaining of ribs pain only Physical Exam Vital Signs: Vital Signs: Last Vital Signs Temp 98.8 F 12/23/21 15:33 Pulse 84 12/23/21 15:33 Resp 20 12/23/21 15:33 BP 107/62 12/23/21 15:33 Pulse Ox 97 12/23/21 15:33 O2 Del Method 12/23/21 11:19 BMI result Body Mass Index 17.9 Const: Other: Constitutional : Alert, interact, not in distress Neck : Normal inspection, Supple Cardiovascular : RRR, no JVP, no lower extremity edema Respiratory : fair bilateral air entry, no crackles, wheezes or rhonchi Gastrointestinal: soft, lax, Normal bowel sounds, Non tender Skin : Warm, Dry Neurological : Alert & oriented to place and person, No focal deficit , Has essential tremors Objective Data Active Medications Acetaminophen (Acetaminophen 325 Mg Tablet) 650 mg PO Q6H PRN PRN Reason: Pain, Mild (Pain Scale 1-3) Bupropion HCl (Bupropion Hcl Xl 150 Mg Tab.Er.24h) 150 mg PO DAILY [facility] Last Admin: 12/23/21 07:11 Dose: 150 mg Documented By: ELIECER Enoxaparin Sodium (Enoxaparin Sodium 40 Mg/0.4 Ml Syringe) 40 mg SUBCUT Q24H [facility] Last Admin: 12/22/21 17:27 Dose: 40 mg Documented By: ELIECER Folic Acid (Folic Acid 1 Mg Tablet) 1 mg PO DAILY [facility] Last Admin: 12/23/21 07:11 Dose: 1 mg Documented By: ELIECER Melatonin (Melatonin 3 Mg Tablet) 3 mg PO BEDTIME PRN PRN Reason: Sleep Last Admin: 12/22/21 19:41 Dose: 3 mg Documented By: JAK Naltrexone HCl (Naltrexone Hcl 50 Mg Tablet) 25 mg PO DAILY [facility] Stop: 12/24/21 09:01 Last Admin: 12/23/21 12:02 Dose: 25 mg Documented By: ELIECER Naltrexone HCl (Naltrexone Hcl 50 Mg Tablet) 50 mg PO DAILY [facility] Olanzapine (Olanzapine 10 Mg Tablet) 10 mg PO BEDTIME [facility] Last Admin: 12/22/21 19:41 Dose: 10 mg Documented By: JAK Ondansetron HCl (Ondansetron Hcl 4 Mg/2 Ml Vial) 4 mg IVPUSH Q8H PRN PRN Reason: Nausea and Vomiting Pharmacy Consult (Consult Rx Perform Med Rec) 1 each MISCELLANE ONCE PRN PRN Reason: Consult order Pharmacy Consult (Consult Rx Etoh Phenob Im/Po) 1 each MISCELLANE ONCE PRN; Protocol PRN Reason: Consult order Phenobarbital (Phenobarbital 30 Mg Tablet) 30 mg PO BID [facility] Stop: 12/24/21 21:01 Last Admin: 12/23/21 07:11 Dose: 30 mg Documented By: ELIECER Phenobarbital (Phenobarbital 15 Mg Tablet) 15 mg PO DAILY [facility] Stop: 12/26/21 09:01 Propranolol HCl (Propranolol Hcl 10 Mg Tablet) 10 mg PO BID [facility]; Protocol Last Admin: 12/23/21 10:21 Dose: 10 mg Documented By: ELIECER Sodium Chloride (0.9 % Sodium Chloride Flush 3 Ml Syringe) 3 ml IVFLUSH QSHIFT [facility] Last Admin: 12/23/21 07:11 Dose: 3 ml Documented By: ELIECER Thiamine HCl (Thiamine Hcl 100 Mg Tablet) 100 mg PO DAILY [facility] Last Admin: 12/23/21 07:11 Dose: 100 mg Documented By: ELIECER Labs CBC & Chem 7: 12/23/21 05:25 12/23/21 05:25 Labs: Laboratory Results - last 24 hr 12/23/21 12/23/21 12/23/21 05:25 05:25 09:30 MCV 88.8 MCH 31.6 MCHC 35.6 RDW 13.6 Plt Count 68 L MPV 10.4 Absolute Nucleated RBC 0.000 Nucleated RBC % (auto) 0.0 Anion Gap 15 Estim Creat Clear Calc 88.9 Estimated GFR > 60 Random Glucose 92 Calcium 8.1 L COVID-19 ([facility]) Negative COVID-19 Clin Com See Note Microbiology Microbiology Results: Microbiology 12/20/21 11:21 Blood Culture - Preliminary Blood - Venous No growth after 48 hours. 12/20/21 11:08 Blood Culture - Preliminary Blood - Venous No growth after 48 hours. Assessment and Plan (1) Alcohol withdrawal: Status: Acute (2) Essential tremor: Status: Acute Plan a 61 years old male with PMH of Alcoholism,ulcerative colitis who presents to the hospital sustaining a fall. hypokalemia Potassium of 3.1 Give replacement and follow BMP falls Secondary to alcohol abuse, physical deconditioning Pending physical therapy Alcoholic Ketoacidosis repeated anion gap discontinue IV D5 Thiamine and folic acid replacement Follow BMP Hyponatremia sodium improved to normal Transaminitis Secondary to alcoholism trending down Elevated lipase No evidence of clinical pancreatitis Advanced diet To regular with supplement Alcoholism, high risk for alcohol withdrawal Advised complete abstinence from alcohol Phenobarbital protocol addiction team to follow the patient essential tremor Started on small dose propranolol DVT PPX Lovenox The patient will need 2 overnight hospital stay for treatment of above complaints to prevent possible decompensation into hypoxic failure, electrolyte imbalance Pending safe discharge plan Quality Stroke Does the patient have a stroke diagnosis?: No VTE Prior VTE?: No VTE Risk Level:: Medical - moderate - high VTE Device Contraindication: Treatment Not Indicated VTE Drug Contraindication: N/A - Med Ordered
[2021-12-23] MEDS: Enoxaparin Sodium 40 MG/0.4 ML SYRINGE SUBCUT (17:01)
[2021-12-23] MEDS: OLANZapine 10 MG TABLET PO (19:52)
[2021-12-23] MEDS: Melatonin 3 MG TABLET PO (19:52)
[2021-12-24 03:19] VITALS: BP 109/60; PULSE 82; RESP 16; TEMP 36.8; O2SAT 92
[2021-12-24 06:16] LABS: Anion Gap 14 (12-20); Blood Urea Nitrogen 8 mg/dL (9-16); Calcium 8.1 mg/dL (8.4-10.2); Carbon Dioxide 26 mmol/L (22-29); Chloride 97 mmol/L (96-108); Creatinine Clr Calc Pharmacy 97.8; Estimated Glomerular Filt Rate > 60; Glucose Random 104 mg/dL (60-115); Potassium 3.7 mmol/L (3.3-5.1); Sodium 133 mmol/L (135-145)
[2021-12-24 07:14] VITALS: BP 90/53; PULSE 80; RESP 18; TEMP 36.3; O2SAT 94
[2021-12-24] MEDS: 0.9 % Sodium Chloride Flush 3 ML SYRINGE IVFLUSH (08:12)
[2021-12-24] MEDS: Folic Acid 1 MG TABLET PO (08:12)
[2021-12-24] MEDS: Thiamine HCL 100 MG TABLET PO (08:12)
[2021-12-24] MEDS: Naltrexone HCl 50 MG TABLET 25 MG PO (08:12)
[2021-12-24] MEDS: PHENobarbitaL 30 MG TABLET PO (08:13)
[2021-12-24] MEDS: buPROPion HCl XL 150 MG TAB.ER.24H PO (08:13)
[2021-12-24 08:18] VITALS: BP 105/70
--- NOTE | 2021-12-24 08:39 | MHC.CM.PN ---
MENA RECEIVED MESSAGE FROM [employer] REPORTING THEY HAVE INSURANCE AUTH, MENA CONTACTED MARCO A LUJAN AT 8:35AM [phone] EXT [phone] AT [place] TO ARRANGE TRANSPORT, PER MARCO A HE WILL CONTACT ALERT TO VERIFY TIME AND GET BACK TO .
[2021-12-24 11:07] VITALS: BP 101/57; PULSE 83; RESP 16; TEMP 36.6; O2SAT 96
== END 2021-12-24 12:09 | disposition skilled nursing facility (03) | DRG 641 ==
LOC: HO.ED 14:08 → HO.EDOVER 14:40 → HO.S3 18:31
PROVIDERS: Admitting Provider Student in an Organized Health Care Education/Training Program; Emergency Provider Student in an Organized Health Care Education/Training Program; PCP Internal Medicine; Visit Provider Physician Assistant Medical
DX: E87.1 Hypo-osmolality and hyponatremia (principal); F10.239 Alcohol dependence with withdrawal, unspecified; D61.818 Other pancytopenia; F10.229 Alcohol dependence with intoxication, unspecified; Y90.8 Blood alcohol level of 240 mg/100 ml or more; G25.0 Essential tremor; E87.2 Acidosis; Z20.822 Contact with and (suspected) exposure to COVID-19; R29.6 Repeated falls; Z91.81 History of falling; Z91.013 Allergy to seafood; Z79.899 Other long term (current) drug therapy
CPT/HCPCS: 36415; 70450; 71045; 72125; 80048; 80053; 80076; 81001; 82077; 82746; 82947; 83605; 83690; 83735; 84484; 85025; 85027; 85610; 87040; 87635; 93005; 96361; 96374; 97116; 97162; 99285; J1650; J2560; J3411

== ENCOUNTER 2023-09-22 06:17 | Day surgery (SDC) | payer OTHER, SELFPAY ==
--- NOTE | 2023-09-20 15:25 | HO.ANESPROP2 ---
HPI - Anesthesia Eval Consult details Narrative: 63yo M for Colonoscopy +ETOH PMFSH Active Problems Active Problems: All Active Problems Immunization counseling (Acute) Cervicalgia (Acute) Laboratory exam ordered as part of routine general medical examination (Acute) Pancytopenia (Acute) Ulcerative colitis (Acute) Alcohol dependence (Acute) Past Medical History Medical History Upper GI bleed Essential tremor Multiple falls Alcohol dependence Ulcerative colitis Surgical History Surgical History History of esophagogastroduodenoscopy (EGD) H/O colonoscopy Social History Social History Household Members: None Housing: Apartment Do you presently have visiting nurse or other home services: No Alcohol intake: current Alcohol intake frequency: 3 or more drinks per day Alcohol type: beer Patient Tobacco Use Status: Never used Tobacco service: Yes Current occupational status: retired Current occupational exposures/hazards: No Meds Allergies Allergy/AdvReac Type Severity Reaction Status Date / Time shellfish derived Allergy Severe ANAPHYLAXIS Verified 09/22/23 06:39 [SHELLFISH DERIVED] /HIVES shrimp Allergy Severe ANAPHYLAXIS Verified 09/22/23 06:39 /HIVES Home Medications ?Medication ?Instructions ?Recorded ?Confirmed ?Last Taken ?Type bupropion HCl 150 mg 24 hr tablet, 150 mg PO DAILY 08/21/21 09/20/23 Unknown History extended release melatonin 3 mg capsule 3 mg PO BEDTIME PRN Sleep 08/21/21 09/20/23 Unknown History olanzapine 10 mg tablet 10 mg PO BEDTIME 08/21/21 09/20/23 Unknown History thiamine HCl (vitamin B1) 100 mg 50 mg PO DAILY 08/21/21 09/20/23 Unknown History tablet Exam Height,Weight and Vital Signs: Height 5 ft 8 in Assessment and Plan Assessment Anesthesia Assessment: Chart Reviewed
[2023-09-22 06:34] VITALS: BP 122/71; PULSE 88; RESP 18; TEMP 36.1; O2SAT 98
--- NOTE | 2023-09-22 06:35 | MHC.SHP ---
Pre-Procedural Eval Section A - 24 Hr Update-Section A only Date of Service: 09/22/23 Section B - Complete if H&P > 30 days Chief Complaint: Ulcerative colitis, unspecified, without complicat Relevant Family History (Specify if Yes): No Relevant Social History: Alcohol Use Present Medications: see Short Stay Collaborative assessment Medical History: Significant History (PMH: depression, high thyroid, UC, psoriasis, alcohol use) History of Previous Operations: Relevant previous surgery/procedure and date(s) (PS: head surgery) Allergies: Allergies Allergy/AdvReac Type Severity Reaction Status Date / Time shellfish derived Allergy Severe ANAPHYLAXIS Verified 04/02/22 14:13 [SHELLFISH DERIVED] /HIVES shrimp Allergy Severe ANAPHYLAXIS Verified 09/20/23 10:18 /VON Review of Systems Sugical H&P ROS: Negative: Constitution, Cardiovascular, Respiratory, Neurological, Psychiatric, Hem-Onc, Allergic/Immunologic, Gastrointestinal, Genitourinary, Musculoskeletal, Integumentary, Endocrine and Eyes/Ears/Nose/Throat Exam Surgical H&P Exam: Normal: HEENT, Normal: Heart, Normal: Lungs, Normal: Extremities, Normal: Abdomen, Normal: Skin and Normal: Neurological Plan Diagnosis/Plan: Unchanged I have reviewed the history and physical and performed a pertinent physical examination on my patient. No changes have occurred unless specified. Time Spent With Patient Time: Total time managing care of this patient today ____ minutes.
[2023-09-22 06:37] VITALS: BMI 19.5
[2023-09-22] MEDS: Lactated Ringers 1,000 ML 100 ML IVCONT (06:53)
--- NOTE | 2023-09-22 07:37 | HO.ANESPROP2 ---
[facility] Active Problems Active Problems: All Active Problems Immunization counseling (Acute) Cervicalgia (Acute) Laboratory exam ordered as part of routine general medical examination (Acute) Pancytopenia (Acute) Ulcerative colitis (Acute) Alcohol dependence (Acute) Past Medical History Medical History Upper GI bleed Essential tremor Multiple falls Alcohol dependence Ulcerative colitis Functional capacity: independent ambulation Family History Family history of problems with anesthesia: No Surgical History Surgical History History of esophagogastroduodenoscopy (EGD) H/O colonoscopy History of Problems with Anesthesia: No Social History Social History Household Members: None Housing: Apartment Do you presently have visiting nurse or other home services: No Alcohol intake: current Alcohol intake frequency: 3 or more drinks per day Alcohol type: beer Patient Tobacco Use Status: Never used Tobacco Advance Directives: No Advance Directives Information Provided: Yes Advance Directives on File: No service: Yes Current occupational status: retired Current occupational exposures/hazards: No Meds Allergies Allergy/AdvReac Type Severity Reaction Status Date / Time shellfish derived Allergy Severe ANAPHYLAXIS Verified 09/22/23 06:39 [SHELLFISH DERIVED] /HIVES shrimp Allergy Severe ANAPHYLAXIS Verified 09/22/23 06:39 /HIVES Active Medications: Current Medications Lactated Ringer's (Lr) 1,000 mls @ 100 mls/hr IVCONT .Q10H ASHISH Last Admin: 09/22/23 06:53 Dose: 100 mls/hr Home Medications ?Medication ?Instructions ?Recorded ?Confirmed ?Last Taken ?Type bupropion HCl 150 mg 24 hr tablet, 150 mg PO DAILY 08/21/21 09/20/23 Unknown History extended release melatonin 3 mg capsule 3 mg PO BEDTIME PRN Sleep 08/21/21 09/20/23 Unknown History olanzapine 10 mg tablet 10 mg PO BEDTIME 08/21/21 09/20/23 Unknown History thiamine HCl (vitamin B1) 100 mg 50 mg PO DAILY 08/21/21 09/20/23 Unknown History tablet Exam Height,Weight and Vital Signs: Height 5 ft 9 in Weight 59.874 kg Last Vital Signs Temp 96.9 F 09/22/23 06:34 Pulse 88 09/22/23 06:34 Resp 18 09/22/23 06:34 BP 122/71 09/22/23 06:34 Pulse Ox 98 09/22/23 06:34 O2 Del Method Room Air 09/22/23 06:34 Airway Mallampati Class: III TM Dist: >3cm Neck ROM: Full Denture: Upper and Lower Heart: RRR Lungs: CTA Assessment and Plan Assessment Anesthesia Assessment: Anesthesia Plan Discussed and Smoking Cess. Discussed Final Anesthetic Review Family History of Problems with Anesthesia: No History of Problems with Anesthesia: No NPO: Yes ASA Class: III Final Preanesthetic Review: Meds/Allgs Chart Reviewed, Consent Obtained/Reviewed and Anes Risks/Benef Reviewed Patient Risk: Low Procedure Risk: Low Anesthetic Plan Anesthetic Plan: MAC: Disposition: Standard PACU
--- NOTE | 2023-09-22 07:40 | HO.OPN-COLON ---
Colonoscopy Operative Note Operative Note Date of Service: 09/22/23 Narrative: Operative Information Procedure Description: Colonoscopy Indication: hx of UC Anesthesia: MAC COLONOSCOPY Instrument: Olympus variable stiffness pediatric scope 190L Colonoscopy Monitoring: Vital signs and clinical assessment, continuous EKG monitoring, Pulse oximetry, Carbon Dioxide monitoring and blood pressure monitoring were done throughout the procedure. Colon withdrawal time was 11 minutes. Procedure: The patient was placed in the left lateral decubitis position and pre-procedure medications were administered. After a digital rectal examination of the ano-rectum, the video colonoscope was inserted into the rectum and advanced through the colon to the cecum/TI. The colonoscope was slowly withdrawn in a retrograde panoramic fashion and the colon mucosa was carefully examined including a retroflexed view of the rectum. Findings and interventions are described below. Procedure Difficulty: easy Findings: Terminal Ileum-normal, bx taken Random bx taken from right, left and rectum areas in separate jars Cecum:normal Ascending Colon: mild diverticulosis Transverse Colon -normal Descending Colon: few diverticula noted Sigmoid Colon: mild erythema, moderate diverticulosis Rectum: Retroflexion with small internal hemorrhoids seen, grade I Anorectum - normal Intervention: cold forceps bx Colon preparation: [place] Bowel Preparation Scale Right colon; 2 Transverse colon: 2 Left colon; 2 (0 = Unprepared colon segment with mucosa not seen due to solid stool that cannot be cleared. 1 = Portion of mucosa of the colon segment seen, but other areas of the colon segment not well seen due to staining, residual stool and/or opaque liquid. 2 = Minor amount of residual staining, small fragments of stool and/or opaque liquid, but mucosa of colon segment seen well. 3 = Entire mucosa of colon segment seen well with no residual staining, small fragments of stool or opaque liquid) Impression and Post Procedure Diagnosis: diverticulosis internal hemorrhoids Plan: High fiber diet leaflet Avoid straining at stool, epsom salts and sitz bath, anusol supps or cream Repeat Colonoscopy in 2-3 years due to hx of UC or earlier if clinically indicated Above findings were reviewed with the patient and relevant handouts were provided if indicated.
[2023-09-22 08:17] VITALS: BP 94/55; PULSE 76; RESP 11; TEMP 36.3; O2SAT 96
[2023-09-22 08:32] VITALS: BP 116/65; PULSE 82; RESP 16; O2SAT 99
[2023-09-22 08:50] VITALS: BP 107/71; PULSE 64; RESP 17; TEMP 36.3; O2SAT 99
--- NOTE | 2023-09-22 09:03 | HO.POSTANES ---
Post Anesthesia Evaluation Post Anesthesia Evaluation Date of Service: 09/22/23 Vital Signs: Vital Signs Temp Pulse Resp BP Pulse Ox O2 Del Method 09/22/23 08:50 97.3 F 64 17 107/71 99 Room Air 09/22/23 08:32 82 16 116/65 99 Room Air 09/22/23 08:17 97.3 F 76 11 L 94/55 L 96 Room Air 09/22/23 06:34 96.9 F 88 18 122/71 98 Room Air Anesthesia: Monitored Mental Status: Awake Pain Control: Satisfactory Nausea/Vomiting: None Hydration: Adequate Anesthesia-Related Issues: No Anes. Related Issues
== END 2023-09-22 09:10 | disposition home or self-care (01) ==
PROVIDERS: PCP Physician Assistant; Visit Provider Internal Medicine Gastroenterology
PROC: 0DJD8ZZ Inspection of Lower Intestinal Tract, Via Natural or Artificial Opening Endoscopic (ICD-10-PCS; CPT 45378; principal; 2023-09-22 07:30)
DX: K57.30 Diverticulosis of large intestine without perforation or abscess without bleeding (principal); K64.0 First degree hemorrhoids; Z87.19 Personal history of other diseases of the digestive system
CPT/HCPCS: 45380; 88305; J2704

== ENCOUNTER → 2023-09-22 06:17 | Outpatient (BNV) | payer OTHER, SELFPAY | PROVIDERS: PCP Physician Assistant; Visit Provider Internal Medicine Gastroenterology | DX: K57.90 Diverticulosis of intestine, part unspecified, without perforation or abscess without bleeding (principal); Z87.19 Personal history of other diseases of the digestive system; K64.0 First degree hemorrhoids | CPT/HCPCS: 45380 ==

== ENCOUNTER 2024-06-01 09:29 | Outpatient (REF) | payer OTHER, SELFPAY ==
--- NOTE | ~2024-06-01 | MR_ITS ---
EXAMINATION: MR BRAIN WITHOUT CONTRAST CLINICAL INFORMATION: Minimal loss COMPARISON: No priors. Correlated to CT brain dated December 20, 2021. TECHNIQUE: MRI of the brain was obtained using routine sequences without contrast. FINDINGS: Submitted for interpretation on June 04, 2024. No restricted diffusion. No acute intracranial hemorrhage, mass effect, midline shift, hydrocephalus or herniation. Garcia-white matter differentiation is normal. Flow-void signal within the main cerebral vessels is normal. Posterior cranial fossa contents demonstrated no acute intracranial hemorrhage or mass effect. Sellar/suprasellar region demonstrated no gross masses or signal abnormality. Craniocervical junction is intact with a periodontal pannus formation. No signal abnormality or gross volume loss in the hippocampi. Prominence of the extra-axial CSF spaces cerebral sulci and ventricles. MR/MR head/brain wo con IMPRESSION: Global cerebral atrophy. No acute stroke or acute brain abnormality. Electronically signed by: Cristiano Sosa MD 06/04/2024 01:50 PM EST
== END 2024-06-01 09:30 | disposition home or self-care (01) ==
LOC: HO.MRI 09:29
PROVIDERS: PCP Physician Assistant; Visit Provider Physician Assistant
DX: R41.3 Other amnesia (principal)
CPT/HCPCS: 70551

== ENCOUNTER → 2024-06-01 09:30 | Outpatient (BNV) | payer OTHER, SELFPAY | PROVIDERS: PCP Physician Assistant; Visit Provider Radiology Diagnostic Radiology | DX: G31.9 Degenerative disease of nervous system, unspecified (principal) | CPT/HCPCS: 70551 ==